=== PATIENT | male | born 1990 | race Asian ===

== ENCOUNTER 2016-05-08 21:26 | Outpatient (CLI) | payer OTHER | END 2016-05-08 21:31 | disposition short-term general hospital (02) | LOC: AMB 21:26 | DX: R06.09 Other forms of dyspnea (principal); J45.998 Other asthma | CPT/HCPCS: A0425; A0427 ==

== ENCOUNTER 2016-05-08 21:33 | Emergency (ER) | payer OTHER ==
[~2016-05-08] VITALS: Ht 188 cm; Wt 64.4 kg
[2016-05-08 21:56] LABS: PLATELET COUNT 184 K/uL (142-355)
[2016-05-08 22:13] LABS: POTASSIUM 3.6 mmol/L (3.6-5.2); SODIUM 138 mmol/L (136-145)
== END 2016-05-08 22:56 | disposition home or self-care (01) ==
LOC: ED 21:33
DX: J20.9 Acute bronchitis, unspecified (principal); J45.901 Unspecified asthma with (acute) exacerbation
CPT/HCPCS: 80053; 85027; 87804; 96374; 99284; J2930